=== PATIENT | male | born 1995 | race Caucasian/White ===

== ENCOUNTER 2022-03-06 16:03 | Emergency (ER) | payer OTHER ==
[~2022-03-06] VITALS: Ht 177.8 cm; Wt 86.0 kg
[2022-03-06] MEDS ORDERED: ONDANSETRON HCL 4MG/2ML INJ IV STA (17:12)
[2022-03-06] MEDS ORDERED: LORAZEPAM 2MG/ML CPJ IV ONE (17:15)
[2022-03-06] MEDS ORDERED: SODIUM CHLORIDE 0.9% 1,000 ML IV ONE (17:15)
[2022-03-06 18:07] LABS: CHLORIDE 106 mEq/L (98-107)
[2022-03-06 19:40] VITALS: BP 135/86
== END 2022-03-06 19:43 | disposition home or self-care (01) ==
LOC: ER 16:03
DX: F10.239 Alcohol dependence with withdrawal, unspecified (principal); Y90.0 Blood alcohol level of less than 20 mg/100 ml; F41.9 Anxiety disorder, unspecified; R07.89 Other chest pain; R06.02 Shortness of breath
CPT/HCPCS: 36415; 80048; 83735; 93005; 96361; 96374; 96375; 99284; J2060; J2405; J7030; Z7610

== ENCOUNTER 2022-03-18 12:10 | Emergency (ER) | payer OTHER ==
[~2022-03-18] VITALS: Ht 175.3 cm; Wt 91.0 kg
[2022-03-18] MEDS ORDERED: CHLORDIAZEPOXIDE 25MG CAPSULE PO ONE (13:00)
[2022-03-18] MEDS ORDERED: SODIUM CHLORIDE 0.9% 1,000 ML IV ONE (13:00)
[2022-03-18 13:48] LABS: BASOPHILS % 0.5 % (0.0-2.0); EOSINOPHILS % 0.6 % (0.0-5.0); HEMATOCRIT. 45.9 % (42.0-52.0); HEMOGLOBIN. 16.1 g/dL (14.0-18.0); LYMPHOCYTES % 21.2 % (20.0-50.0); MEAN CORPUSCULAR HEMOGLOBIN 31.1 pg (28.0-32.0); MEAN CORPUSCULAR VOLUME 88.7 fL (80.0-94.0); MEAN PLATELET VOLUME 10.7 fl (7.4-10.4); NEUTROPHILS % 71.7 % (40.0-76.0); PLATELET 217 x1000/uL (130-400); RED BLOOD CELL COUNT 5.18 mill/uL (4.7-6.1); RED CELL DISTRIBUTION WIDTH 13.8 % (11.6-14.6)
[2022-03-18 13:53] LABS: CHLORIDE 102 mEq/L (98-107)
[2022-03-18 14:00] LABS: ETHANOL BLOOD < 10 mg/dL
[2022-03-18 14:55] LABS: CLARITY URINE CLEAR (CLEAR); COLOR URINE YELLOW (YELLOW); KETONES URINE 2+ (NEGATIVE); LEUKOCYTE ESTERASE URINE TRACE (NEGATIVE); NITRITE URINE NEGATIVE (NEGATIVE); OCCULT BLOOD URINE NEGATIVE (NEGATIVE); PH URINE 7.5 (4.5-8.0); PROTEIN URINE 1+ (NEGATIVE); SPECIFIC GRAVITY URINE 1.017 (1.005-1.030)
[2022-03-18 15:11] LABS: *AMPHETAMINES SCREEN URINE NEGATIVE (NEGATIVE); *BARBITURATES SCREEN URINE NEGATIVE (NEGATIVE); *BENZODIAZEPINES SCREEN URINE NEGATIVE (NEGATIVE); *COCAINE SCREEN URINE NEGATIVE (NEGATIVE); CANNABINOID URINE SCREEN NEGATIVE (NEGATIVE); METHADONE URINE SCREEN NEGATIVE (NEGATIVE); OPIATES URINE SCREEN NEGATIVE (NEGATIVE); PHENCYCLIDINE URINE SCREEN NEGATIVE (NEGATIVE)
[2022-03-18 17:00] VITALS: BP 142/78
[2022-03-18] MEDS ORDERED: ACETAMINOPHEN 325MG TABLET PO ONE (17:15)
== END 2022-03-18 17:33 | disposition home or self-care (01) ==
LOC: ER 12:16
DX: M62.81 Muscle weakness (generalized) (principal); R20.0 Anesthesia of skin; R20.2 Paresthesia of skin; F10.21 Alcohol dependence, in remission
CPT/HCPCS: 36415; 80053; 80305; 80320; 81003; 85025; 93005; 96360; 99284; J7030; G0480